=== PATIENT | female | born 1950 | race African-American/Black ===

== ENCOUNTER → 2019-11-15 | Outpatient (CLI) | payer MEDICARE, MEDICAID ==
--- NOTE | 2019-11-15 16:46 | RAD ---
EXAM: Renal sonogram. HISTORY: Renal insufficiency. TECHNIQUE: Sonographic imaging the kidneys and bladder was performed. COMPARISON: None. FINDINGS: The kidneys are normal in size. There is no solid or cystic renal lesion. There is no hydronephrosis. The bladder is empty. IMPRESSION: Sonographically unremarkable kidneys. Electronically signed by: Victorina Magallon MD (11/15/2019 4:43 PM) [facility]
== END | disposition home or self-care (01) ==
LOC: US 15:40
PROVIDERS: ATTEND Internal Medicine Nephrology
DX: N18.3 Chronic kidney disease, stage 3 (moderate) (principal)
CPT/HCPCS: 76770